=== PATIENT | male | born 1960 | race Caucasian/White ===

== ENCOUNTER 2019-05-18 13:57 | Emergency (ER) | payer OTHER ==
--- NOTE | 2019-05-18 14:27 | PDOC ---
Rapid Medical Evaluation Time Seen by Provider: 05/18/19 14:25 Medical Evaluation: Allergies Allergy/AdvReac Type Severity Reaction Status Date / Time No Known Allergies Allergy Verified 04/17/18 12:59 05/18/19 14:25 HPI: Inability to have an erection x4 days PE: No gross deficits ORDERS: Nothing Discharge Disposition - Diagnosis Penile erection impairment - Discharge Dispostion Condition at time of disposition: Stable - Referrals - Patient Instructions - Post Discharge Activity
[2019-05-18 14:30] VITALS: BP 124/82; TEMP 98.5; BMI 27.2
--- NOTE | 2019-05-18 16:05 | PDOC ---
History of Present Illness - General Stated Complaint: GENITAL ISSUE Time Seen by Provider: 05/18/19 14:25 History Source: Patient Exam Limitations: No Limitations - History of Present Illness Initial Comments: 05/18/19 15:29 58-year-old male who states is unable to have an erection or ejaculation since he feels spirit of president della is going through his anus and affecting his body. Patient is here only for an injection to help him with an erection which he states discharged to have the past 3 days with 3 attempts. Patient states has no abdominal pain, difficulty urinating, rectal pressure, penile discharge, or rash. Patient denies homicidal or suicidal ideation. Patient denies psych history and alcohol/drug use Timing/Duration: intermittent Severity: mild Associated Symptoms: reports: denies symptoms Past History - Travel Traveled outside of the country in the last 30 days: No - Past Medical History Allergies/Adverse Reactions: Allergies Allergy/AdvReac Type Severity Reaction Status Date / Time No Known Allergies Allergy Verified 04/17/18 12:59 Home Medications: Ambulatory Orders Unobtainable 04/17/18 Diabetes: No - Suicide/Smoking/Psychosocial Hx Smoking History: Current every day smoker Number of Cigarettes Smoked Daily: 15 Information on smoking cessation initiated: No Hx Alcohol Use: No Drug/Substance Use Hx: Yes Patient Lives Alone: Yes Lives with/in: lives alone Review of Systems - Review of Systems Able to Perform ROS?: Yes Constitutional: No: Symptoms Reported Respiratory: No: Symptoms reported Cardiac (ROS): No: Symptoms Reported ABD/GI: No: Symptoms Reported : Yes: Other. No: Testicular Swelling, Testicular Pain Musculoskeletal: No: Symptoms Reported Integumentary: No: Symptoms Reported Neurological: No: Symptoms reported Psychiatric: Yes: Other *Physical Exam - Vital Signs Last Vital Signs Temp Pulse Resp BP Pulse Ox 98.5 F 123 H 19 124/82 97 05/18/19 14:25 05/18/19 14:25 05/18/19 14:25 05/18/19 14:25 05/18/19 14:25 - Physical Exam General Appearance: Yes: Nourished, Appropriately Dressed, Alcohol on Breath. No: Apparent Distress Gastrointestinal/Abdominal: positive: Soft. negative: Tenderness Male Genitalia: positive: normal genitalia Extremity: positive: Normal Inspection Integumentary: positive: Normal Color, Warm, Moist Neurologic: positive: Motor Strength 5/5 (ambulatory) Medical Decision Making - Medical Decision Making 05/18/19 16:02 Complaint: Unable to have an erection or ejaculate the past few days after 3 attempts. Patient has no other complaints. Patient stating Pres. carlos ghost is going to his anus and affecting his mind Exam: No abnormal findings on exam Plan patient given urology consult along with psych referral 05/18/19 18:54 Called [facility]aut[facility] carrasqu[facility] and was able to speak to a direct care worker that schedules his appointments and is aware of his whereabouts. As per staff patient went to [facility] on Saturday and Saturday for similar complaints. Spoke to patient and recommended [facility] tomorrow or return to [facility] ER immediately. Patient states he is tired and wants to eat and is aware of his options. Called again the direct care staff Cynthia who states is on all night and will send him out if she notices any erratic behavior. *DC/Admit/Observation/Transfer Diagnosis at time of Disposition: Penile erection impairment - Discharge Dispostion Disposition: HOME Condition at time of disposition: Stable - Referrals Referrals: Elier Peguero MD [Staff Physician] - Quirino Nunes NP [Nurse Practitioner] - - Patient Instructions Printed Discharge Instructions: Erectile Dysfunction - Post Discharge Activity
[2019-05-18 16:34] VITALS: PULSE 98
--- NOTE | 2019-05-18 18:57 | PDOC ---
*Physical Exam - Vital Signs Last Vital Signs Temp Pulse Resp BP Pulse Ox 98.5 F 98 H 19 124/82 97 05/18/19 14:25 05/18/19 16:34 05/18/19 14:25 05/18/19 14:25 05/18/19 14:25 *DC/Admit/Observation/Transfer Diagnosis at time of Disposition: Penile erection impairment - Discharge Dispostion Disposition: HOME Condition at time of disposition: Stable - Referrals Referrals: Elier Peguero MD [Staff Physician] - Quirino Nunes NP [Nurse Practitioner] - - Patient Instructions Printed Discharge Instructions: Erectile Dysfunction - Post Discharge Activity
== END 2019-05-18 17:00 | disposition home or self-care (01) ==
LOC: JER 13:57
DX: N52.9 Male erectile dysfunction, unspecified (principal); F17.210 Nicotine dependence, cigarettes, uncomplicated
CPT/HCPCS: 99281-25

== ENCOUNTER 2022-02-26 04:49 | Day surgery (SDC) | payer OTHER ==
[2022-02-26 06:55] LABS: INR 0.96 (0.83-1.09)
[2022-02-26 06:58] LABS: ACTIVATED PTT 36.6 SECONDS (25.2-36.5)
[2022-02-26] MEDS ORDERED: LIDOCAINE HCL 1%, 10 MG/ML (20ML VIAL) ONE (07:11)
[2022-02-26] MEDS ORDERED: BUPIVACAINE HCL/PF 0.5% (5MG/ML) 10 ML VIAL ONE (07:11)
[2022-02-26 07:34] LABS: ALBUMIN 3.9 g/dl (3.4-5.0); BLOOD UREA NITROGEN 13.1 mg/dL (7-18); CALCIUM 8.5 mg/dL (8.5-10.1)
[2022-02-26 07:39] LABS: BILIRUBIN,TOTAL 0.8 mg/dL (0.2-1); TOT PROT 7.4 g/dl (6.4-8.2)
[2022-02-26] MEDS ORDERED: MIDAZOLAM HCL 2 MG/2 ML SINGLE DOSE VIAL ONE ×2 (07:59)
[2022-02-26] MEDS ORDERED: PROPOFOL 20 ML ONE ×3 (08:00)
[2022-02-26] MEDS ORDERED: SUCCINYLCHOLINE CHLORIDE 200 MG/10 ML SYRINGE ONE (08:00)
[2022-02-26] MEDS ORDERED: LIDOCAINE HCL 1%, 10 MG/ML (20ML VIAL) NR ONE ×2 (08:27)
[2022-02-26] MEDS ORDERED: BUPIVACAINE HCL/PF 0.5% (5 MG/ML) 30 ML VIAL IJ ONE (08:28)
[2022-02-26] MEDS ORDERED: oxyCODONE HCL 5 MG TABLET PO PRN (08:56)
[2022-02-26] MEDS ORDERED: ONDANSETRON 4 MG/2 ML VIAL IVPUSH PRN (08:56)
[2022-02-26] MEDS ORDERED: LACTATED RINGERS SOLUTION 1,000 ML IV SCH (09:00)
[2022-02-26 10:16] VITALS: BP 160/96; PULSE 77; TEMP 98.1
== END 2022-02-26 11:04 | disposition home or self-care (01) ==
LOC: JASU-SURG 04:49
PROVIDERS: ATTEND Orthopaedic Surgery
PROC: 0JBJ0ZZ Excision of Right Hand Subcutaneous Tissue and Fascia, Open Approach (ICD-10-PCS; principal; 2022-02-26 08:00)
DX: R22.31 Localized swelling, mass and lump, right upper limb (principal)
CPT/HCPCS: 36415; 80053; 85610; 85730; 88305-TC; 94760